=== PATIENT | female | born 1970 | race Caucasian/White ===

== ENCOUNTER 2019-02-19 19:22 | Emergency (ER) | payer OTHER ==
[~2019-02-19] VITALS: Ht 149.9 cm; Wt 81.6 kg
[2019-02-19 19:34] VITALS: BP 135/92
--- NOTE | 2019-02-19 19:43 | NUR ---
PT AMBULATED TO WITH STEADY GAIT. INSTRUCTED TO RETRUN TO LOBBY. AWAITING AVAILABLE BED.
--- NOTE | 2019-02-19 19:59 | NUR ---
PT AMBULATED TO BED 11 WITH STEADY GAIT.
--- NOTE | 2019-02-19 20:16 | NUR ---
Dr. Khanna examining patient.
[2019-02-19] MEDS ORDERED: NACL 0.9% 1,000 ML IV ONE (20:18)
[2019-02-19] MEDS ORDERED: diphenhydrAMINE 50 MG/ML VIAL IVP ONE (20:20)
[2019-02-19] MEDS ORDERED: METOCLOPRAMIDE 10 MG/2 ML INJ VIAL IVP ONE (20:20)
--- NOTE | 2019-02-19 20:29 | NUR ---
PATIENT PRESENTS TO ER FOR HEADACHE X2 WEEKS. C/O LOWER BACK PAIN, FEVER AND CHILLS. PATIENT IS AA&OX4. RESPIRATIOSN EVEN AND UNLABORED. MD AT BEDSIDE. UPDATED ON POC, VERBALZIED UNDERSTANDING. WILL CONINTUE TO MONITOR.
[2019-02-19] MEDS ORDERED: KETOROLAC 30 MG/ML VIAL IVP ONE (21:15)
--- NOTE | 2019-02-19 21:49 | NUR ---
Patient discharged with v/s stable. Written and verbal after care instructions given and explained. Patient alert, oriented and verbalized understanding of instructions. Ambulatory with steady gait. All questions addressed prior to discharge. ID band removed. Patient advised to follow up with PMD. Rx of NORCO, MOTRIN, ZOFRAN, CIPRO given. Patient educated on indication of medication including possible reaction and side effects. Opportunity to ask questions provided and answered.
[2019-02-19 21:50] VITALS: BP 130/72
== END 2019-02-19 21:49 | disposition home or self-care (01) ==
LOC: EDBD 19:22 → MED 19:22
DX: R51 Headache (principal); N12 Tubulo-interstitial nephritis, not specified as acute or chronic
CPT/HCPCS: 81002; 81025; 96374; 96375; 99283; J1200; J1885; J2765; J7030

== ENCOUNTER 2022-03-16 10:01 | Outpatient (CLI) | payer OTHER ==
[~2022-03-16] VITALS: Ht 152.4 cm; Wt 81.6 kg
== END 2022-03-16 23:59 | disposition home or self-care (01) ==
LOC: MLB 10:01 → EDSTATUS 03-17 17:00
PROVIDERS: ATTEND Internal Medicine Gastroenterology
DX: Z01.812 Encounter for preprocedural laboratory examination (principal); Z20.822 Contact with and (suspected) exposure to COVID-19